=== PATIENT | female | born 1980 | race Caucasian/White ===

== ENCOUNTER 2017-07-15 13:16 | Emergency (ER) | payer OTHER ==
[~2017-07-15 13:16] MED LIST: IBUP600 PO; PERI8.6T PO; PREN1TAB30
--- NOTE | 2017-07-15 14:21 | PD ---
HPI Chief Complaint Dizziness, near syncopal episode Travel History International Travel<30 Days: No Contact w/Intl Traveler<30Days: No Known Affected Area: No History of Present Illness HPI 1011, IUP at 31.4 care complicated by history of arrhythmia, rheumatoid arthritis, LEEP 2, history of short cervix due to the same The patient presents complaining of an episode of dizziness and near syncope that occurred approximately 11:00 this a.m. at work. 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 She reports that she had eaten at 10 AM and was inside when she had this episode. She reports that she was sitting down and felt her ears start ringing, her vision started to change and become white, the room started spinning, and she felt like she was then passed out. Because of this she laid down and place her feet up. Some coworkers brought her coconut water and other hydration. When she was feeling better she went back to class and started to feel the same symptoms again. At that point she called her mother to take her home. She suddenly called the doctor's office and was instructed to come in for further evaluation. She reports that during she has frequently been dizzy and was recently told she is anemic. She also reports that she has had an off-and-on arrhythmia during and was told by her by the panelboard assembler that this is related to and she did in fact have an abnormality seen on Holter monitor. She denies any leaking of fluid or vaginal bleeding. She reports that she has had a constant mild cramp sensation since last night, left lower quadrant has been worse in the right lower quadrant, but is still overall mild. She denies any regular contractions or intermittent cramping sensation. She reports normal movement. She has no other concerns today. She reports that she has a mild headache. Weeks Gestation: 31 Para: 1 : 3 History Past Medical History Narrative Medical Anemia Obstetric History Obstetric History 1 SAB 1 History of abnormal Pap smears with LEEP 2 History of short cervix Past Surgical History Narrative Surgical LEEP x2 [place] teeth extraction Family History Narrative Family History CAD MS HTN DM CA CVA Social History Alcohol Use: No Tobacco Use: No Substance Abuse: No Allergies-Medications (Allergen,Severity, Reaction): Coded Allergies: No Known Allergies (Unverified , 12/02/14) Home Meds Active Scripts Sennosides-Docusate Sodium (Lisa-Colace 8.6-50 mg) 1 Tab Tab, 2 TAB PO Q12H Y for CONSTIPATION, #30 TAB Prov:Lita Vee MD 12/02/14 Ibuprofen (Motrin 600 Mg Tab) 600 Mg Tab, 600 MG PO Q6H Y for CRAMPING, #30 TAB Prov:Lita Vee MD 12/02/14 Reported Medications Vit W/ Ferrous Fumara ( Vitamin 27-0.8 mg) 1 Tab Tab 12/02/14 Review of Systems Except as stated in HPI: all other systems reviewed are Neg Physical Exam Narrative GENERAL: Well-nourished, well-developed patient. SKIN: Warm and dry. HEAD: Normocephalic and atraumatic. EYES: No scleral icterus. No injection or drainage. ENT: No nasal drainage noted. Mucous membranes pink. Airway patent. NECK: Supple, trachea midline. No JVD. CARDIOVASCULAR: Regular rate and rhythm without murmurs, gallops, or rubs. RESPIRATORY: Breath sounds equal bilaterally. No accessory muscle use. BREASTS: deferred ABDOMEN/GI: Abdomen soft, non-tender, bowel sounds present, no rebound, no guarding Gravid GENITOURINARY: External Genitalia: intact and normal in appearance. Grossly normal EGBUS. No cervical or vaginal masses noted, physiologic discharge, grossly normal rugae. SVE closed, 50% effaced, high, posterior cervix FHT's: heart tones in the 130s, moderate rn long term care variability, no decels , and good accelerations noted. FHR reassuring and appropriate for gestational age with reactive NST and category one heart rate tracing. EXTREMITIES: No cyanosis or edema. BACK: Nontender without obvious deformity. NEUROLOGICAL: Awake and alert. Motor and sensory grossly within normal limits. Normal speech. Psychiatric: grossly noraml memory and affect Musculoskeletal: grossly normal ROM, gait, Muscle strength Data Data Orders Orders Vital Signs (Adult) .ON ADMISSION (07/15/17 14:19) ^ Labor Status (07/15/17 14:19) Urinalysis - C+S If Indicated (07/15/17 14:19) ^ Non Stress Test (5/9/18 14:19) Diet Liquid (07/15/17 Dinner) Cbc No Diff, Includes Plts (07/15/17 14:19) Comprehensive Metabolic Panel (07/15/17 14:19) Fibronectin (07/15/17 14:19) Magnesium (Mg) (07/15/17 14:19) D5-Lr (Bolus) Inj (07/15/17 14:30) MDM Plan Assessment/Plan: 1. IUP at 31.4 2. Near syncopal episode: patient with borderline K and mag, will replete. Patient with concentrated urine and likely dehydration. Patient feels much better after IVF x2L and has voided several times since receiving IVF. Advised slow position changes, encouraged good hydration. Advised patient to go to ER for further evaluation to rule out cardiac etiology. Rx given for patient to have excused absence to rest tomorrow. 3. History of arrhythmia: advised further evaluation in ED 4. Rheumatoid arthritis 5. history of short cervix: cervix palpates about 50% effaced, follow up with primary Ob as indicated 6. Cramping: no evidence of labor, cervix closed and negative FFN, strict PTL precautions 7. wellbeing: reassuring testing with reactive NST, FKC daily. 8. F/U with primary Ob in 2-3d or sooner if needed Diagnosis Diagnosis: Primary Impression: 31 weeks gestation of Additional Impressions: Dehydration Near syncope Disposition: 01 DISCHARGE HOME Condition: Isela Wagner MD July 15, 2017 14:20
[2017-07-15] MEDS ORDERED: DEXTROSE 5%-LACTATED RING INJ 1,000 ML IV ONE (14:30)
--- NOTE | 2017-07-15 15:12 | PD ---
History of Present Illness History of Present Illness NST procedure note Indications: IUP at 31w, near syncopal episode, dizziness, anemia FHR in the 130s with moderate residential variability, good accelerations, and no decelerations. This is a category one heart rate tracing and reactive NST. FHR is reassuring and appropriate for gestational age. Final dx: IUP at 31w, near syncopal episode, dizziness, dehydration, anemia F/U as clincially indicated. Isela Joyce MD July 15, 2017 15:11
[2017-07-15 15:17] LABS: HEMATOCRIT 31.4 % (35.0-46.0); HEMOGLOBIN 10.4 GM/DL (11.6-15.3); MEAN CELL VOLUME 82.9 FL (80.0-100.0); MEAN CORPUSCULAR HEMOGLOBIN 27.6 PG (27.0-34.0); MEAN CORPUSCULAR HGB CONC 33.3 % (32.0-36.0); MEAN PLATELET VOLUME 8.5 FL (7.0-11.0); PLATELET COUNT 185 TH/MM3 (150-450); RED BLOOD COUNT 3.79 MIL/MM3 (4.00-5.30); RED CELL DISTRIBUTION WIDTH 15.5 % (11.6-17.2); WHITE BLOOD COUNT 13.8 TH/MM3 (4.0-11.0)
[2017-07-15 15:23] LABS: ALBUMIN 2.6 GM/DL (3.4-5.0); ALT (GPT) 11 U/L (10-53); AST (GOT) 11 U/L (15-37); BICARBONATE 25.6 MEQ/L (21.0-32.0); BLOOD UREA NITROGEN 7 MG/DL (7-18); CALCIUM 10.4 MG/DL (8.5-10.1); CHLORIDE 103 MEQ/L (98-107); GLOMERULAR FILTRATION RATE 95 ML/MIN (>89); GLUCOSE,RANDOM 84 MG/DL (74-106); SODIUM (NA) 138 MEQ/L (136-145)
[2017-07-15 15:25] LABS: ALKALINE PHOSPHATASE 65 U/L (45-117); TOTAL BILIRUBIN ADULT 0.2 MG/DL (0.2-1.0); TOTAL PROTEIN 7.3 GM/DL (6.4-8.2)
[2017-07-15 15:26] LABS: BILIRUBIN, URINE NEG (NEG); BLOOD, URINE NEG (NEG); GLUCOSE,URINE NEG (NEG); KETONE, URINE NEG (NEG); MUCUS URINE FEW /lpf (OCC); NITRITE,URINE NEG (NEG); SQUAMOUS EPITHELIAL CELL URINE 44 /hpf (0-5); URINE COLOR YELLOW (YELLW/STRAW); URINE LEUKOCYTE ESTERASE TRACE (NEG)
[2017-07-15] MEDS ORDERED: MAGNESIUM SULFATE 4 GM PREMIX 100 ML IV ONE (16:00)
[2017-07-15] MEDS ORDERED: POTASSIUM CHLORIDE 10 MEQ CONTROLLED RELEASE TAB PO SCH (16:15)
== END 2017-07-15 17:24 | disposition home or self-care (01) ==
LOC: HOBED 13:16
DX: O99.283 Endocrine, nutritional and metabolic diseases complicating pregnancy, third trimester (principal); E86.0 Dehydration; O99.413 Diseases of the circulatory system complicating pregnancy, third trimester; I49.9 Cardiac arrhythmia, unspecified; O99.89 Other specified diseases and conditions complicating pregnancy, childbirth and the puerperium; M06.9 Rheumatoid arthritis, unspecified; Z3A.31 31 weeks gestation of pregnancy
CPT/HCPCS: 59025; 80053; 81001; 82731; 83735; 85027; 96365; 96368; 99284; J3475; J7121

== ENCOUNTER 2017-08-28 21:05 | Emergency (ER) | payer OTHER ==
--- NOTE | 2017-08-28 22:31 | PD ---
HPI Chief Complaint c/o LOF Date Seen: Aug 28, 2017 Time Seen: 22:00 Travel History International Travel<30 Days: No Contact w/Intl Traveler<30Days: No Known Affected Area: No History of Present Illness HPI pt is presents at 37 + wks c/o leaking fluid after urination. occasional contractions. denies vaginal bleeding. +FM. pnc is with dr. ross. has been uncomplicated to date History Past Medical History Narrative Medical Rheumatoid Arthritis hx of depression in 2017 Obstetric History Obstetric History X 1 MAB X 1 Past Surgical History Narrative Surgical LEEP X 2 wisdom teeth extraction Family History Family History: Negative Social History Alcohol Use: No Tobacco Use: No Substance Abuse: No Allergies-Medications (Allergen,Severity, Reaction): Coded Allergies: No Known Allergies (Unverified , 12/02/14) Home Meds Active Scripts Sennosides-Docusate Sodium (Lisa-Colace 8.6-50 mg) 1 Tab Tab, 2 TAB PO Q12H Y for CONSTIPATION, #30 TAB Prov:Lita Ross MD 12/02/14 Ibuprofen (Motrin 600 Mg Tab) 600 Mg Tab, 600 MG PO Q6H Y for CRAMPING, #30 TAB Prov:Lita Ross MD 12/02/14 Reported Medications Vit W/ Ferrous Fumara ( Vitamin 27-0.8 mg) 1 Tab Tab 12/02/14 Review of Systems Except as stated in HPI: all other systems reviewed are Neg Physical Exam Narrative GENERAL: Well-nourished, well-developed patient. SKIN: Warm and dry. HEAD: Normocephalic and atraumatic. EYES: No scleral icterus. No injection or drainage. ENT: No nasal drainage noted. Mucous membranes pink. Airway patent. NECK: Supple, trachea midline. No JVD. CARDIOVASCULAR: Regular rate and rhythm without murmurs, gallops, or rubs. RESPIRATORY: Breath sounds equal bilaterally. No accessory muscle use. BREASTS: Bilateral exam showed no masses , no retractions, no nipple discharge. ABDOMEN/GI: Abdomen soft, non-tender, bowel sounds present, no rebound, no guarding Gravid to 37 weeks size Membranes: [intact] amnisure negative Uterine Contractions: [-] irregular FHT's: Category: [-] 1 Baseline: [-] Reactive: [-] Variability: [-] Decels: [-] EXTREMITIES: No cyanosis or edema. BACK: Nontender without obvious deformity. No CVA tenderness. NEUROLOGICAL: Awake and alert. Motor and sensory grossly within normal limits. Five out of 5 muscle strength in all muscle groups. Normal speech. Data Data Vital Signs Reviewed: Yes Orders Orders Vital Signs (Adult) .ON ADMISSION (08/28/17 22:18) ^ Labor Status (08/28/17 22:18) ^ Non Stress Test (08/28/17 22:18) Pamg-1 Test .ONCE (08/28/17 22:18) Labs Allergies Coded Allergies No Known Allergies (Unverified12/02/14) Orders - Hung Howe MD Procedure Category Date Status Time Vital Signs (Adult) ELIAS 08/28/17 Verified 22:18 ^ Labor Status ELIAS 08/28/17 Verified 22:18 ^ Non Stress Test ELIAS 08/28/17 Verified 22:18 Pamg-1 Test ELIAS 08/28/17 Verified 22:18 Active Scripts Active Lisa-Colace 8.6-50 mg (Sennosides-Docusate Sodium) 1 Tab Tab 2 Tab PO Q12H PRN Motrin 600 Mg Tab (Ibuprofen) 600 Mg Tab 600 Mg PO Q6H PRN Reported Vitamins ( Vit W/ Ferrous Fumara) 1 Tab Tab MDM Medical Record Reviewed: Yes Interpretation(s) at Term No evidence of SROM Narrative Course / MDM amnisure neg d/c home precautions reviewed Diagnosis Diagnosis: Primary Impression: Disposition: 01 DISCHARGE HOME Condition: Good Patient Instructions: General Instructions, Having Your Baby: The Labor Process (GEN) Additional Instructions: RETURN FOR CONTRACTIONS, LOSS OF FLUID (WATER BREAKING), VAGINAL BLEEDING, OR DECREASED MOVEMENT DRINK 8-10 LARGE GLASSES OF WATER EVERY DAY KEEP SCHEDULED APPOINTMENT WITH YOUR PROVIDER Departure Forms: Tests/Procedures Hung Howe MD Aug 28, 2017 22:31
== END 2017-08-28 23:26 | disposition home or self-care (01) ==
LOC: HOBED 21:05
DX: O47.1 False labor at or after 37 completed weeks of gestation (principal); Z3A.37 37 weeks gestation of pregnancy
CPT/HCPCS: 59025; 84112

== ENCOUNTER 2017-09-02 04:08 | Inpatient (IN) | payer OTHER ==
[2017-09-02] VITALS (44 sets, daily range): BP systolic 89–140; BP diastolic 42–95; PULSE 66–102; RESP 17–18; TEMP 97.7–99; O2SAT 98–100
[~2017-09-02] VITALS: Ht 154.9 cm; Wt 90.7 kg
[2017-09-02] MEDS ORDERED: NS 1000 ML IV PRN (04:30)
[2017-09-02] MEDS ORDERED: LACTATED RINGER'S 1000 ML BOLUS IV PRN (04:30)
[2017-09-02] MEDS ORDERED: CITRIC ACID-SODIUM CITRATE LIQ 30 ML UDC PO SCH (04:30)
[2017-09-02] MEDS ORDERED: OXYTOCIN 30 UNITS 500ML PREMIX IV ONE (04:30)
[2017-09-02] MEDS ORDERED: LIDOCAINE HCL 1% 50 ML VIAL INFIL PRN (04:30)
[2017-09-02] MEDS ORDERED: NS 500 ML BOLUS IV PRN (04:30)
[2017-09-02] MEDS ORDERED: MINERAL OIL 10 ML VIAL TOPICAL PRN (04:30)
[2017-09-02] MEDS ORDERED: ONDANSETRON HCL 4 MG/2 ML VIAL IV PUSH PRN (04:30)
[2017-09-02] MEDS ORDERED: LIDOCAINE HCL 1% 50 ML VIAL I-DERMAL PRN (04:30)
[2017-09-02 04:52] LABS: BACTERIA, URINE RARE /hpf; BILIRUBIN, URINE NEG (NEG); BLOOD, URINE SMALL (NEG); GLUCOSE,URINE NEG (NEG); KETONE, URINE TRACE mg/dL (NEG); MUCUS URINE FEW /lpf (OCC); NITRITE,URINE NEG (NEG); SQUAMOUS EPITHELIAL CELL URINE 3 /hpf (0-5); URINE COLOR YELLOW (YELLW/STRAW); URINE LEUKOCYTE ESTERASE NEG (NEG)
[2017-09-02] MEDS ORDERED: LIDOCAINE HCL 1% PF 30 ML VIAL ONE ×2 (04:53→12:09)
[2017-09-02] MEDS ORDERED: fentaNYL 2MCG-BUPIV 0.125% INJ 150 ML EPIDURAL ONE (04:53)
[2017-09-02] MEDS ORDERED: DO NOT ADMINISTER ANTICOAGULANTS PRN (05:00)
[2017-09-02] MEDS ORDERED: NO SYSTEM NARCOTICS PRN (05:00)
[2017-09-02] MEDS: LACTATED RINGER'S 1000 ML IV SCH ×2 (05:02→11:30)
[2017-09-02 05:05] LABS: AUTOMATED NEUTROPHIL # 10.3 TH/MM3 (1.8-7.7); BASOPHIL # 0.1 TH/MM3 (0-0.2); BASOPHIL % 0.4 % (0.0-2.0); EOSINOPHIL # 0.1 TH/MM3 (0-0.4); EOSINOPHIL % 0.9 % (0.0-4.0); HEMATOCRIT 35.5 % (35.0-46.0); HEMOGLOBIN 11.8 GM/DL (11.6-15.3); LYMPH % 18.2 % (9.0-44.0); LYMPHOCYTE # 2.5 TH/MM3 (1.0-4.8); MEAN CELL VOLUME 82.2 FL (80.0-100.0); MEAN CORPUSCULAR HEMOGLOBIN 27.3 PG (27.0-34.0); MEAN CORPUSCULAR HGB CONC 33.2 % (32.0-36.0); MEAN PLATELET VOLUME 9.4 FL (7.0-11.0); MONO % 6.9 % (0.0-8.0); NEUT % 73.6 % (16.0-70.0); PLATELET COUNT 154 TH/MM3 (150-450); RED BLOOD COUNT 4.32 MIL/MM3 (4.00-5.30); RED CELL DISTRIBUTION WIDTH 16.8 % (11.6-17.2)
[2017-09-02] MEDS ORDERED: fentaNYL 2MCG-BUPIV 0.125% 150 ML EPIDURAL PRN (05:45)
[2017-09-02] MEDS ORDERED: ePHEDrine/NS 25 MG/5 ML SYRINGE IV PUSH PRN (05:45)
--- NOTE | 2017-09-02 05:53 | PD ---
HPI Chief Complaint leaking fluid Date Seen: Sep 02, 2017 Time Seen: 05:00 Travel History International Travel<30 Days: No Contact w/Intl Traveler<30Days: No Known Affected Area: No History of Present Illness HPI 37 yo presents at 38 wks c/o LOF since 3 am. +contractions, denies VB +FM. is uncomplicated. care is with dr. ross. History Past Medical History Narrative Medical RA hx of depression in 2017 Obstetric History Obstetric History X 1 SAB X 1 Past Surgical History Narrative Surgical LEEP X 2 wisdom teeth extraction Family History Family History: Negative Social History Alcohol Use: No Tobacco Use: No Substance Abuse: No Allergies-Medications (Allergen,Severity, Reaction): Coded Allergies: No Known Allergies (Unverified , 12/02/14) Home Meds Reported Medications Vit W/ Ferrous Fumara ( Vitamin 27-0.8 mg) 1 Tab Tab 12/02/14 Discontinued Scripts Sennosides-Docusate Sodium (Lisa-Colace 8.6-50 mg) 1 Tab Tab, 2 TAB PO Q12H Y for CONSTIPATION, #30 TAB Prov:Lita Ross MD 12/02/14 Ibuprofen (Motrin 600 Mg Tab) 600 Mg Tab, 600 MG PO Q6H Y for CRAMPING, #30 TAB Prov:Lita Ross MD 12/02/14 Review of Systems Except as stated in HPI: all other systems reviewed are Neg Physical Exam Vital Signs Date Time Temp Pulse Resp B/P (MAP) Pulse Ox O2 Delivery O2 Flow Rate FiO2 09/02/17 05:31 137/95 (109) 09/02/17 05:30 84 100 09/02/17 05:26 83 134/63 (86) 09/02/17 05:25 90 100 09/02/17 05:24 17 100 09/02/17 05:21 97 140/71 (94) Narrative GENERAL: Well-nourished, well-developed patient. SKIN: Warm and dry. HEAD: Normocephalic and atraumatic. EYES: No scleral icterus. No injection or drainage. ENT: No nasal drainage noted. Mucous membranes pink. Airway patent. NECK: Supple, trachea midline. No JVD. CARDIOVASCULAR: Regular rate and rhythm without murmurs, gallops, or rubs. RESPIRATORY: Breath sounds equal bilaterally. No accessory muscle use. BREASTS: Bilateral exam showed no masses , no retractions, no nipple discharge. ABDOMEN/GI: Abdomen soft, non-tender, bowel sounds present, no rebound, no guarding Gravid GENITOURINARY: External Genitalia: intact and normal in appearance BUS glands: [-] Cervix: [-] 3/80/-3 Presentation: [-] vtx Membranes: [ruptured] Uterine Contractions: [-]irreg FHT's: Category: [-] 1 Baseline: [-] 120s Reactive: [-] yes Variability: [-] mod Decels: [-] none EXTREMITIES: No cyanosis or edema. BACK: Nontender without obvious deformity. No CVA tenderness. NEUROLOGICAL: Awake and alert. Motor and sensory grossly within normal limits. Five out of 5 muscle strength in all muscle groups. Normal speech. Data Data Vital Signs Reviewed: Yes Orders Orders Ob (2e) Additional Admit Info (09/02/17 04:14) Lactated Ringer's 1000 Ml Inj (Lr 1000 M (09/02/17 04:30) Lactated Ringer's 1000 Ml Inj (Lr 1000 M (09/02/17 04:30) Sodium Chlorid 0.9% 500 Ml Inj (Ns 500 M (09/02/17 04:30) Sodium Chlor 0.9% 1000 Ml Inj (Ns 1000 M (09/02/17 04:30) Lidocaine 1% Inj (50 Ml) (Xylocaine 1% I (09/02/17 04:30) Fentanyl Inj (Fentanyl Inj) (09/02/17 04:30) Fentanyl Inj (Fentanyl Inj) (09/02/17 04:30) Oxytocin 30 Units-500ml Premix (Pitocin (09/02/17 04:30) Lidocaine 1% Inj (50 Ml) (Xylocaine 1% I (09/02/17 04:30) Light Mineral Oil (Muri-Lube Oil) (09/02/17 04:30) Citric Acid-Sodium Citrate Liq (Bicitra (09/02/17 04:30) Ondansetron Inj (Zofran Inj) (09/02/17 04:30) Admit To Inpatient (09/02/17 ) Vital Signs (Adult) .Per protocol (09/02/17 04:29) Activity Oob Ad Crys (09/02/17 04:29) Heart (09/02/17 04:29) Amnioinfusion (09/02/17 04:29) Urinary Catheter Management .ONCE (09/02/17 04:29) Diet Liquid (09/02/17 Breakfast) Complete Blood Count With Diff (09/02/17 04:29) Hold Clot (09/02/17 04:29) Abo/Rh Blood Type (09/02/17 04:29) Urinalysis - C+S If Indicated (09/02/17 04:29) Ob/Psych Drug Screen, Urine (09/02/17 04:29) Resp Oxygen Non Rebreathe Mask (09/02/17 ) ^ Epidural / Intrathecal Infus (09/02/17 04:29) Lidocaine Pf 1% Inj (Xylocaine-Mpf 1% In (09/02/17 04:53) Fentanyl 2mcg-Bupiv 0.125% Inj (Fentanyl (09/02/17 04:53) ^ Place On Chart (09/02/17 ) ^ Medication Indications (09/02/17 ) Consent (09/02/17 ) ^ No Systemic Narcotics (09/02/17 ) ^ Call Anesthesiologist (09/02/17 ) ^ Discontinue Epidural Cathete (09/02/17 ) Anticoagulant Alert (09/02/17 ) ^ Epidural Alert (09/02/17 ) Nursing Information ([facility] Inform (09/02/17 05:00) Nursing Information ([facility] Inform (09/02/17 05:00) Fentanyl Inj (Fentanyl Inj) (09/02/17 05:00) Fentanyl 2mcg-Bupiv 0.125% Inj (Fentanyl (09/02/17 05:45) Ephedrine/Ns 25 Mg/5 Ml Syr (Ephedrine/N (09/02/17 05:45) Group B Strep: Negative Labs Laboratory Tests Test 09/02/17 04:20 09/02/17 04:57 Urine Color YELLOW Urine Turbidity HAZY Urine pH 6.0 Urine Specific [place] 1.015 Urine Protein 30 Urine Glucose (UA) NEG Urine Ketones TRACE Urine Occult Blood SMALL Urine Nitrite NEG Urine Bilirubin NEG Urine Urobilinogen LESS THAN 2 Urine Leukocyte Esterase NEG Urine RBC 12 Urine WBC 7 Urine Squamous Epithelial Cells 3 Urine Bacteria RARE Urine Mucus FEW Microscopic Urinalysis Comment CULT NOT INDICATED Urine Opiates Screen NEG Urine Barbiturates Screen NEG Urine Amphetamines Screen NEG Urine Benzodiazepines Screen NEG Urine Cocaine Screen NEG Urine Cannabinoids Screen NEG White Blood Count 14.0 Red Blood Count 4.32 Hemoglobin 11.8 Hematocrit 35.5 Mean Corpuscular Volume 82.2 Mean Corpuscular Hemoglobin 27.3 Mean Corpuscular Hemoglobin Concent 33.2 Red Cell Distribution Width 16.8 Platelet Count 154 Mean Platelet Volume 9.4 Neutrophils (%) (Auto) 73.6 Lymphocytes (%) (Auto) 18.2 Monocytes (%) (Auto) 6.9 Eosinophils (%) (Auto) 0.9 Basophils (%) (Auto) 0.4 Neutrophils # (Auto) 10.3 Lymphocytes # (Auto) 2.5 Monocytes # (Auto) 1.0 Eosinophils # (Auto) 0.1 Basophils # (Auto) 0.1 CBC Comment DIFF FINAL Differential Comment MDM Medical Record Reviewed: Yes Interpretation(s) IUP@ term SROM Plan admit epidural prn d/w dr. santana Diagnosis Diagnosis: Primary Impression: SROM (spontaneous rupture of membranes) Additional Impression: Hung Howe MD Sep 02, 2017 05:53
[2017-09-02] MEDS ORDERED: OXYTOCIN 30 UNITS-500ML PREMIX 500 ML IV PRN (06:45)
--- NOTE | 2017-09-02 12:24 | PD.OB.DELI ---
Weeks gestation: 38 Pt started active labor?: Yes Medical induction of labor?: No Artificial rupture of membrane: No Anesthesia: Epidural Episiotomy: None Vaginal Delivery: Normal Presentation: Occiput anterior Nuchal Cord: x1, Other (true cord) Delayed cord clamping (45 sec): Yes Infant: Male Delivery date: Sep 02, 2017 Delivery time: 12:10 One Minute : 7 Five Minute : 8 Weight: pending Placenta: Spontaneous delivery, Intact Laceration: No lacerations Estimated blood loss: 100ml Lita Vee MD Sep 02, 2017 12:24
[2017-09-02] MEDS ORDERED: ALUMINUM/MAGNESIUM/SIMETH 30 ML CUP PO PRN (12:30)
[2017-09-02] MEDS ORDERED: BENZOCAINE 20% TOPICAL SPRAY 60 ML CAN TOPICAL PRN (12:30)
[2017-09-02] MEDS ORDERED: SODIUM CHLORIDE 0.9% FLUSH 10 ML FLUSH IV FLUSH PRN (12:30)
[2017-09-02] MEDS ORDERED: WITCH HAZEL 50%/GLYCERIN 12.5% 40 PAD JAR TOPICAL PRN (12:30)
[2017-09-02] MEDS ORDERED: ACETAMINOPHEN 325 MG TAB PO PRN (12:30)
[2017-09-02] MEDS ORDERED: ONDANSETRON ODT 4 MG TAB PO PRN (12:30)
[2017-09-02] MEDS ORDERED: OXYTOCIN 30 UNITS-500ML PREMIX 500 ML IV SCH (12:30)
[2017-09-02] MEDS: IBUPROFEN 800 MG TAB PO PRN (12:52)
[2017-09-02] MEDS ORDERED: MEASLES, MUMPS, RUBELLA VACCINE 0.5 ML VIAL SQ ONE (16:00)
[2017-09-02] MEDS ORDERED: DIPHTH/TETANUS/ACEL PERTUSSIS (BOOSTER) 0.5 ML VIAL/PFS IM ONE (16:00)
--- NOTE | 2017-09-02 17:25 | HHI.DCPOC ---
Discharge Care Plan Diagnosis: (1) SROM (spontaneous rupture of membranes) (2) Spontaneous vaginal delivery Report Symptoms to Your Doctor -Temperature above 100.5 degrees -Redness, of incision or excessive or foul smelling drainage -Unusual pain or calf pain -Increased vaginal bleeding -Painful or difficulty urinating -Feelings of extreme sadness or anxiety after 2 weeks Goals to Promote Your Health * To prevent worsening of your condition and complications * To maintain your health at the optimal level Directions to Meet Your Goals Take your medications as prescribed Follow your dietary instruction Follow activity as directed Ensure plenty of rest for recovery Drink fluids for hydration Keep your appointments as scheduled Take your immunizations and boosters as scheduled If your symptoms worsen call your PCP, if no PCP go to Urgent Care Center or Emergency Room Smoking is Dangerous to Your Health. Avoid second hand smoke Call the 24-hour crisis hotline for domestic abuse at Kevin Carver MD Sep 02, 2017 17:25
[2017-09-02] MEDS ORDERED: ZOLPIDEM TARTRATE 5 MG TAB PO PRN (21:00)
[2017-09-02] MEDS: SODIUM CHLORIDE 0.9% FLUSH 10 ML FLUSH IV FLUSH SCH (21:50)
[2017-09-02] MEDS: oxyCODONE/ACETAMINOPHEN 5 MG/325 MG TAB PO PRN (21:50)
[2017-09-02] MEDS: DOCUSATE SODIUM 50 MG/SENNA 8.6 MG TAB PO PRN (21:56)
[2017-09-03 02:08] VITALS: BP 100/69; PULSE 79; RESP 20; TEMP 97.7; O2SAT 97
[2017-09-03] MEDS: oxyCODONE/ACETAMINOPHEN 5 MG/325 MG TAB PO PRN ×5 (02:22→22:14)
[2017-09-03] MEDS: IBUPROFEN 800 MG TAB PO PRN ×3 (07:25→22:14)
[2017-09-03] MEDS: DOCUSATE SODIUM 50 MG/SENNA 8.6 MG TAB PO PRN ×2 (07:25→22:13)
[2017-09-03 07:35] VITALS: TEMP 98.2
[2017-09-03] MEDS: SODIUM CHLORIDE 0.9% FLUSH 10 ML FLUSH IV FLUSH SCH (09:00)
[2017-09-03] MEDS ORDERED: IBUP-232 PO (10:04)
--- NOTE | 2017-09-03 10:06 | HHI.OB ---
Subjective Post Day: 1 Remarks Doing well, pain controlled, ambulating, vaginal bleeding less than menses. Objective Vitals/I&O Vital Signs Date Time Temp Pulse Resp B/P (MAP) Pulse Ox O2 Delivery O2 Flow Rate FiO2 09/03/17 07:35 98.2 09/03/17 02:08 97.7 79 20 100/69 (79) 97 09/03/17 02:08 100/69 (79) 09/03/17 02:08 97.7 79 20 09/03/17 02:08 97 09/02/17 20:00 98.0 76 18 114/69 (84) 09/02/17 15:00 89/56 (67) 09/02/17 15:00 98.9 90 18 98 09/02/17 13:46 80 122/65 (84) 09/02/17 13:31 74 113/56 (75) 09/02/17 13:16 83 118/70 (86) 09/02/17 13:01 82 109/42 (64) 09/02/17 12:55 18 09/02/17 12:48 82 128/63 (84) 09/02/17 12:47 99.0 09/02/17 12:30 87 121/78 (92) 09/02/17 12:01 78 113/52 (72) 09/02/17 11:31 86 120/54 (76) 09/02/17 11:14 98.3 09/02/17 11:00 85 123/73 (90) 09/02/17 10:31 87 105/59 (74) Objective Remarks GENERAL: Well-nourished, well-developed patient. CARDIOVASCULAR: Regular rate and rhythm without murmurs, gallops, or rubs. RESPIRATORY: Breath sounds equal bilaterally. No accessory muscle use. ABDOMEN/GI: Abdomen soft, non-tender. Fundus: Firm, non-tender at umbilicus. GENITOURINARY: Light to moderate bleeding. EXTREMITIES: No cyanosis or edema, non-tender, without signs of DVT. Medications and IVs Current Medications Medications (Trade) Dose Ordered Sig/Kareem Route Start Time Stop Time Status Last Admin (NS Flush) 2 ml BID IV FLUSH 09/02/17 21:00 09/02/17 21:50 (NS Flush) 2 ml UNSCH PRN IV FLUSH 09/02/17 12:30 (Tylenol) 650 mg Q4H PRN PO 09/02/17 12:30 09/02/17 17:40 (Motrin) 800 mg Q8H PRN PO 09/02/17 12:30 09/03/17 07:25 (Americaine 20% Top Spr) 1 spray Q4H PRN TOPICAL 09/02/17 12:30 (Tucks Pads) 1 applic QID PRN TOPICAL 09/02/17 12:30 (Lisa-Colace) 2 tab Q12H PRN PO 09/02/17 12:30 09/03/17 07:25 (Ambien) 5 mg HS PRN PO 09/02/17 21:00 (Mag-Al Plus Susp Liq) 15 ml Q8H PRN PO 09/02/17 12:30 (Zofran Odt) 4 mg Q6H PRN PO 09/02/17 12:30 (Percocet 5-325 Mg) 1 tab Q4H PRN PO 09/02/17 19:45 09/03/17 07:29 Assessment/Plan Assessment and Plan 37-year-old 012 status post at 38 weeks. 1. day #1: Afebrile, vital signs stable, anticipate discharge home in the next 24 hours. -Male , will have circumcision done for anabaptist purposes outside of the hospital Kevin Carver MD Sep 03, 2017 10:06
[2017-09-03 21:00] VITALS: BP 98/62; PULSE 72; RESP 18
[2017-09-04] MEDS: IBUPROFEN 800 MG TAB PO PRN (07:10)
[2017-09-04] MEDS: oxyCODONE/ACETAMINOPHEN 5 MG/325 MG TAB PO PRN ×2 (07:10→11:58)
[2017-09-04 08:00] VITALS: BP 109/57; PULSE 75; RESP 20; TEMP 97.9
--- NOTE | 2017-09-04 08:16 | HHI.OB ---
Subjective Post Day: 2 Remarks Doing well, min pain and bleeding. Objective Vitals/I&O Vital Signs Date Time Temp Pulse Resp B/P (MAP) Pulse Ox O2 Delivery O2 Flow Rate FiO2 09/03/17 21:00 18 09/03/17 21:00 72 98/62 (74) Objective Remarks GENERAL: Well-nourished, well-developed patient. CARDIOVASCULAR: Regular rate and rhythm without murmurs, gallops, or rubs. RESPIRATORY: Breath sounds equal bilaterally. No accessory muscle use. ABDOMEN/GI: Abdomen soft, non-tender. Fundus: Firm, non-tender at umbilicus. GENITOURINARY: Light to moderate bleeding. EXTREMITIES: No cyanosis or edema, non-tender, without signs of DVT. Medications and IVs Current Medications Medications (Trade) Dose Ordered Sig/Kareem Route Start Time Stop Time Status Last Admin (NS Flush) 2 ml BID IV FLUSH 09/02/17 21:00 09/02/17 21:50 (NS Flush) 2 ml UNSCH PRN IV FLUSH 09/02/17 12:30 (Tylenol) 650 mg Q4H PRN PO 09/02/17 12:30 09/02/17 17:40 (Motrin) 800 mg Q8H PRN PO 09/02/17 12:30 09/04/17 07:10 (Americaine 20% Top Spr) 1 spray Q4H PRN TOPICAL 09/02/17 12:30 (Tucks Pads) 1 applic QID PRN TOPICAL 09/02/17 12:30 (Lisa-Colace) 2 tab Q12H PRN PO 09/02/17 12:30 09/03/17 22:13 (Ambien) 5 mg HS PRN PO 09/02/17 21:00 (Mag-Al Plus Susp Liq) 15 ml Q8H PRN PO 09/02/17 12:30 (Zofran Odt) 4 mg Q6H PRN PO 09/02/17 12:30 (Percocet 5-325 Mg) 1 tab Q4H PRN PO 09/02/17 19:45 09/04/17 07:10 Assessment/Plan Assessment and Plan 37-year-old 012 status post at 38 weeks. 1. day #2: Afebrile, vital signs stable, anticipate discharge home today -Male , will have circumcision done for denominational purposes outside of the hospital Lita Vee MD Sep 04, 2017 08:16
[2017-09-04] MEDS: SODIUM CHLORIDE 0.9% FLUSH 10 ML FLUSH IV FLUSH SCH (09:00)
[2017-09-04] MEDS: DOCUSATE SODIUM 50 MG/SENNA 8.6 MG TAB PO PRN (11:58)
== END 2017-09-04 13:41 | disposition home or self-care (01) | DRG 775 ==
LOC: HOBED 04:08 → H2EB 04:20 → H1EA 14:20
PROVIDERS: ADMIT Obstetrics & Gynecology; ATTEND Obstetrics & Gynecology
PROC: 10E0XZZ Delivery of Products of Conception, External Approach (ICD-10-PCS; principal; 2017-09-02)
PROC: 00HU33Z Insertion of Infusion Device into Spinal Canal, Percutaneous Approach (ICD-10-PCS; 2017-09-02)
PROC: 3E0R3BZ Introduction of Anesthetic Agent into Spinal Canal, Percutaneous Approach (ICD-10-PCS; 2017-09-02)
DX: O69.81X0 Labor and delivery complicated by cord around neck, without compression, not applicable or unspecified (principal); Z37.0 Single live birth; Z3A.38 38 weeks gestation of pregnancy; Z23 Encounter for immunization
CPT/HCPCS: 59025; 80307; 81001; 85025; 86900; 86901; 99284; G0481; J2590; J7120